=== PATIENT | female | born 2000 | race Two or more races ===

== ENCOUNTER 2021-12-05 21:31 | Observation (INO) | payer MEDICAID, OTHER ==
[2021-12-05] MEDS ORDERED: PREN-96 PO (22:07)
== END 2021-12-05 23:26 | disposition home or self-care (01) ==
LOC: LDRP 21:31
PROVIDERS: ADMIT Obstetrics & Gynecology; ATTEND Obstetrics & Gynecology
DX: O62.9 Abnormality of forces of labor, unspecified (principal); O34.63 Maternal care for abnormality of vagina, third trimester; N89.8 Other specified noninflammatory disorders of vagina; Z3A.39 39 weeks gestation of pregnancy
CPT/HCPCS: 59025; 81002; 94760; G0378